=== PATIENT | male | born 1950 | race Caucasian/White ===

== ENCOUNTER 2017-10-23 14:17 | Inpatient (IN) | payer MEDICARE, OTHER ==
[~2017-10-23] VITALS: Ht 175.3 cm; Wt 84.0 kg
[~2017-10-23 14:17] MED LIST: ASPI-1265 PO; ATOR40TA71 PO; DIVA-81 PO; DIVA250T4 PO; FLO0.4C PO; LISI-600 PO
[2017-10-23 15:09] LABS: BASOPHILS % (AUTO) 0 % (0-1); EOSINOPHILS % (AUTO) 0 % (0-6); HEMATOCRIT 38.2 % (42.0-52.0); HEMOGLOBIN 13.4 g/dl (14.0-17.9); LYMPHOCYTES # (AUTO) 0.4 X10'3 (1.1-4.8); LYMPHOCYTES % (AUTO) 2.7 % (21-51); MEAN CORPUSCULAR HEMOGLOBIN 34.8 PG (27.0-31.0); MEAN CORPUSCULAR HGB CONC 35.2 % (33.0-36.5); MEAN CORPUSCULAR VOLUME 98.9 FL (78-98); MEAN PLATELET VOLUME 8.1 FL (7.4-10.4); MONOCYTES # (AUTO) 0.8 X10'3 (0-0.9); MONOCYTES % (AUTO) 5.3 % (2-12); NEUTROPHILS # (AUTO) 14.4 X10'3 (1.8-7.7); PLATELET COUNT 60 X10'3 (140-440); RED BLOOD COUNT 3.86 X10'6 (4.70-6.10); WHITE BLOOD COUNT 15.6 X10'3 (4.5-11.0)
[2017-10-23 15:21] LABS: INR 1.1 INR; PARTIAL THROMBOPLASTIN TIME 32 SECONDS (22-32); PROTHROMBIN TIME 11.2 SECONDS (9.0-12.0)
[2017-10-23 15:31] LABS: ALANINE AMINOTRANSFERASE 10 U/L (12-78); ALBUMIN 2.6 G/DL (3.4-5.0); ALBUMIN/GLOBULIN RATIO 0.5 (1.1-1.5); ALKALINE PHOSPHATASE 57 IU/L (46-116); ANION GAP 8 (8-16); ASPARTATE AMINO TRANSFERASE 15 U/L (10-37); BILIRUBIN,TOTAL 0.7 MG/DL (0.1-1.0); BLOOD UREA NITROGEN 29 MG/DL (7-18); BUN/CREATININE RATIO 26.4 (5.4-32.0); CALCIUM 8.9 MG/DL (8.5-10.1); CHLORIDE 98 MMOL/L (99-107); GLUCOSE 100 MG/DL (70-104); POTASSIUM 4.4 MMOL/L (3.5-5.1); SODIUM 134 MMOL/L (135-145); TOTAL CARBON DIOXIDE 28.3 MMOL/L (24-32); TOTAL PROTEIN 7.4 G/DL (6.4-8.2); VALPROATE 90 UG/ML (50-100); eGFR 66 ML/MIN
[2017-10-23 16:30] LABS: CLARITY,URINE CLEAR (Clear); COLOR,URINE YELLOW (Yellow); GLUCOSE, URINE NEGATIVE (Neg); KETONES,URINE 40 mg/dl (Neg); LEUKOCYTE ESTERASE ,URINE NEGATIVE (Neg); NITRITES, URINE NEGATIVE (Neg); OCCULT BLOOD,URINE SMALL (Neg); PH,URINE 7.5 (4.8-8.0); PROTEIN,URINE TRACE mg/dl (Neg)
[2017-10-23 16:32] LABS: UA COLLECTION TYPE VOIDED
[2017-10-23 16:38] LABS: BACTERIA,URINE NONE SEEN /HPF (Neg); RBC,URINE 0-2 /HPF (0-2); SQUAMOUS EPITHELIAL CELL,UR FEW /LPF (FEW); WBC,URINE NONE SEEN /HPF (0-4)
[2017-10-23] MEDS ORDERED: acetaminophen 325mg tablet PO ONE (17:20)
[2017-10-23] MEDS ORDERED: normal saline 1000ML IV soln IV ONE (17:50)
[2017-10-23] MEDS ORDERED: levoFLOXACIN-Levaquin 750MG/D5 150 ML IV ONE (17:50)
[2017-10-23] MEDS ORDERED: CITA20TA11 PO (19:18)
[2017-10-23] MEDS ORDERED: DIVA500T7 PO (19:21)
[2017-10-23] MEDS ORDERED: LISI1TAB11 PO (19:21)
[2017-10-23] MEDS ORDERED: DOXA1TAB2 PO (19:42)
[2017-10-23 20:35] VITALS: BP 134/82
[2017-10-23 22:00] VITALS: BP 121/68
[2017-10-24 05:00] VITALS: BP 116/84
[2017-10-24 10:00] VITALS: BP_SYST 114; BP_SYST 123; BP_DIAS 63; BP_DIAS 71
[2017-10-24] MEDS ORDERED: divalproex sodium 250mg tablet PO ONE (10:40)
[2017-10-24 15:40] LABS: BASOPHILS % (AUTO) 0.1 % (0-1); EOSINOPHILS % (AUTO) 0 % (0-6); HEMATOCRIT 35.6 % (42.0-52.0); HEMOGLOBIN 12.6 g/dl (14.0-17.9); LYMPHOCYTES # (AUTO) 0.7 X10'3 (1.1-4.8); LYMPHOCYTES % (AUTO) 8.6 % (21-51); MEAN CORPUSCULAR HEMOGLOBIN 35.3 PG (27.0-31.0); MEAN CORPUSCULAR HGB CONC 35.4 % (33.0-36.5); MEAN CORPUSCULAR VOLUME 99.7 FL (78-98); MEAN PLATELET VOLUME 8.4 FL (7.4-10.4); MONOCYTES # (AUTO) 1.1 X10'3 (0-0.9); MONOCYTES % (AUTO) 13.8 % (2-12); NEUTROPHILS # (AUTO) 6.2 X10'3 (1.8-7.7); NEUTROPHILS % (AUTO) 77.5 % (42-75); PLATELET COUNT 69 X10'3 (140-440); RED BLOOD COUNT 3.57 X10'6 (4.70-6.10)
[2017-10-24 15:54] LABS: ALANINE AMINOTRANSFERASE 12 U/L (12-78); ALBUMIN 2.3 G/DL (3.4-5.0); ALBUMIN/GLOBULIN RATIO 0.5 (1.1-1.5); ALKALINE PHOSPHATASE 52 IU/L (46-116); ANION GAP 5 (8-16); ASPARTATE AMINO TRANSFERASE 18 U/L (10-37); BILIRUBIN,TOTAL 0.7 MG/DL (0.1-1.0); BLOOD UREA NITROGEN 23 MG/DL (7-18); CALCIUM 8.5 MG/DL (8.5-10.1); CHLORIDE 98 MMOL/L (99-107); GLUCOSE 117 MG/DL (70-104); SODIUM 132 MMOL/L (135-145); TOTAL CARBON DIOXIDE 29.3 MMOL/L (24-32); TOTAL PROTEIN 6.6 G/DL (6.4-8.2); eGFR 74 ML/MIN
[2017-10-24 18:00] VITALS: BP 136/80
[2017-10-24] MEDS ORDERED: divalproex sod 250mg ER (24-hour) tablet PO SCH (20:00)
[2017-10-24] MEDS: levoFLOXACIN-Levaquin 750MG/D5 150 ML IV SCH (20:37)
[2017-10-24 22:00] VITALS: BP 148/85
[2017-10-25 05:00] VITALS: BP 143/87
[2017-10-25] MEDS: atorvastatin 20mg tablet PO SCH (07:59)
[2017-10-25] MEDS: aspirin 81mg tab.chew PO SCH (07:59)
[2017-10-25] MEDS: lisinopril 20mg tablet PO SCH (07:59)
[2017-10-25] MEDS: HYDROchlorothiazide 12.5mg capsule PO SCH (07:59)
[2017-10-25] MEDS ORDERED: divalproex sodium 500mg tablet.DR PO SCH (08:00)
[2017-10-25] MEDS: doxazosin mesylate 2mg tablet PO SCH ×2 (08:00→10:18)
[2017-10-25] MEDS ORDERED: levoFLOXACIN-Levaquin 750MG/D5 150 ML IV SCH (08:00)
[2017-10-25] MEDS: divalproex sodium 500mg tablet.DR PO SCH (10:17)
[2017-10-25 18:00] VITALS: BP 116/74
[2017-10-25] MEDS: levoFLOXACIN-Levaquin 750MG/D5 150 ML IV SCH (20:50)
[2017-10-25 22:00] VITALS: BP 117/65
[2017-10-26 06:00] VITALS: BP 129/76
[2017-10-26] MEDS: HYDROchlorothiazide 12.5mg capsule PO SCH (09:16)
[2017-10-26] MEDS: lisinopril 20mg tablet PO SCH (09:16)
[2017-10-26] MEDS: atorvastatin 20mg tablet PO SCH (09:16)
[2017-10-26] MEDS: doxazosin mesylate 2mg tablet PO SCH (09:16)
[2017-10-26] MEDS: aspirin 81mg tab.chew PO SCH (09:16)
[2017-10-26] MEDS: divalproex sodium 500mg tablet.DR PO SCH (09:18)
[2017-10-26] MEDS ORDERED: LEVO500T2 PO (10:09)
[2017-10-26 10:30] VITALS: BP 108/62
[2017-10-26] MEDS ORDERED: lactobacillus rhamnosus 10,000 MMU CELLS/CAPSULE PO SCH (17:30)
== END 2017-10-26 12:15 | DRG 100 ==
LOC: ER 14:18 → ED HOLD 19:15 → ORTHO 4S 20:39
PROVIDERS: ADMIT Family Medicine; ATTEND Legal Medicine
DX: G40.409 Other generalized epilepsy and epileptic syndromes, not intractable, without status epilepticus (principal); J18.9 Pneumonia, unspecified organism; R32 Unspecified urinary incontinence; Z79.82 Long term (current) use of aspirin; Z79.899 Other long term (current) drug therapy
CPT/HCPCS: 36415; 70450; 70551; 71045; 80053; 80164; 81001; 83605; 84145; 84484; 85025; 85610; 85730; 87040; 87070; 93005; 96374; 96375; 97110; 97116; 97162; 97530; 99285; A4353; J1956; J7030

== ENCOUNTER 2017-12-04 08:43 | Inpatient (IN) | payer MEDICARE, OTHER ==
[~2017-12-04] VITALS: Ht 180.3 cm; Wt 80.0 kg
[~2017-12-04 08:43] MED LIST changes: -DIVA-81 PO; -DIVA250T4 PO; +DIVA500T7 PO; +DOXA1TAB2 PO; -FLO0.4C PO; -LISI-600 PO; +LISI1TAB11 PO
[2017-12-04] MEDS ORDERED: LORazepam 2 mg/ml vial IV ONE (08:45)
[2017-12-04] MEDS ORDERED: LORazepam 2 mg/ml vial ONE (08:46)
[2017-12-04] MEDS ORDERED: ondansetron/PF 4mg/2ml inj IV ONE (09:00)
[2017-12-04] MEDS ORDERED: ondansetron/PF 4mg/2ml inj ONE (09:00)
[2017-12-04 09:11] LABS: BASOPHILS % (AUTO) 0.2 % (0-1); EOSINOPHILS # (AUTO) 0.1 X10'3 (0-0.9); EOSINOPHILS % (AUTO) 1.8 % (0-6); HEMATOCRIT 42.1 % (42.0-52.0); HEMOGLOBIN 14.9 g/dl (14.0-17.9); LYMPHOCYTES # (AUTO) 0.7 X10'3 (1.1-4.8); LYMPHOCYTES % (AUTO) 9.7 % (21-51); MEAN CORPUSCULAR HEMOGLOBIN 35.4 PG (27.0-31.0); MEAN CORPUSCULAR HGB CONC 35.3 % (33.0-36.5); MEAN CORPUSCULAR VOLUME 100.1 FL (78-98); MEAN PLATELET VOLUME 8.3 FL (7.4-10.4); MONOCYTES # (AUTO) 0.4 X10'3 (0-0.9); NEUTROPHILS # (AUTO) 6.3 X10'3 (1.8-7.7); NEUTROPHILS % (AUTO) 83.3 % (42-75); PLATELET COUNT 111 X10'3 (140-440); RED CELL DISTRIBUTION WIDTH 14.7 % (11.5-14.5); WHITE BLOOD COUNT 7.6 X10'3 (4.5-11.0)
[2017-12-04 09:19] LABS: INR 1.1 INR; PARTIAL THROMBOPLASTIN TIME 25 SECONDS (22-32); PROTHROMBIN TIME 11.1 SECONDS (9.0-12.0)
[2017-12-04] MEDS ORDERED: acetaminophen 650mg rectal suppository RC STA (09:28)
[2017-12-04] MEDS ORDERED: normal saline 1000ML IV soln IVB ONE (09:30)
[2017-12-04 09:33] LABS: ALANINE AMINOTRANSFERASE 13 U/L (12-78); ALBUMIN 3.1 G/DL (3.4-5.0); ALBUMIN/GLOBULIN RATIO 0.8 (1.1-1.5); ALKALINE PHOSPHATASE 42 IU/L (46-116); ANION GAP 11 (8-16); ASPARTATE AMINO TRANSFERASE 16 U/L (10-37); BILIRUBIN,TOTAL 0.6 MG/DL (0.1-1.0); BLOOD UREA NITROGEN 25 MG/DL (7-18); BUN/CREATININE RATIO 27.2 (5.4-32.0); CALCIUM 8.4 MG/DL (8.5-10.1); CHLORIDE 104 MMOL/L (99-107); CREATININE 0.92 MG/DL (0.60-1.10); ETHANOL < 0.010 GM/DL (0.0-0.010); GLUCOSE 122 MG/DL (70-104); MAGNESIUM 2.1 MG/DL (1.5-2.4); PHOSPHORUS 3.3 MG/DL (2.3-4.5); POTASSIUM 4.6 MMOL/L (3.5-5.1); SODIUM 139 MMOL/L (135-145); TOTAL CARBON DIOXIDE 24.1 MMOL/L (24-32); TOTAL PROTEIN 7.2 G/DL (6.4-8.2); eGFR 82 ML/MIN
[2017-12-04 09:37] LABS: VALPROATE 49 UG/ML (50-100)
[2017-12-04 09:56] LABS: ABG BASE EXCESS 2.6 mmol/L (-2.0-3.0); ABG HCO3 25.9 mmol/L (22.0-26.0); ABG OXYGEN SATURATION 93.9 % (95-98); ABG PCO2 (T) 37.9 mmHg (35.0-48.0); ABG PH (T) 7.457 (7.350-7.450); ABG PO2 (T) 75.4 mmHg (83-108); ALLEN'S TEST Positive; FCOHb 0.6 % (0.5-1.5); FMetHb 0.2 % (0.3-1.12); FO2Hb 93.1 % (94-100); PATIENT TEMPERATURE 38.1; TOTAL HEMOGLOBIN 15.4 G/dl (14.0-18.0)
[2017-12-04] MEDS ORDERED: azithromycin/NS 500mg/250ml 250 ML IV ONE (10:10)
[2017-12-04] MEDS ORDERED: CefTRIAXone 2gm/NS 100ml IVPB 100 ML IV ONE (10:10)
[2017-12-04 10:32] LABS: CLARITY,URINE SLIGHTLY CLOUDY (Clear); COLOR,URINE STRAW (Yellow); GLUCOSE, URINE NEGATIVE (Neg); KETONES,URINE NEGATIVE (Neg); LEUKOCYTE ESTERASE ,URINE NEGATIVE (Neg); NITRITES, URINE NEGATIVE (Neg); OCCULT BLOOD,URINE LARGE (Neg); PROTEIN,URINE NEGATIVE (Neg); UROBILINOGEN,URINE 0.2 E.U/dL (0.2-1.0)
[2017-12-04 10:38] LABS: UA COLLECTION TYPE OTHER
[2017-12-04 10:41] LABS: RBC,URINE 50-100 /HPF (0-2); SQUAMOUS EPITHELIAL CELL,UR FEW /LPF (FEW); TRANSITIONAL EPI CELLS,URINE FEW /HPF
[2017-12-04 10:42] LABS: BACTERIA,URINE 1+ /HPF (Neg); URINE AMPHETAMINE SCREEN NEGATIVE (Neg); URINE BARBITUATE SCREEN NEGATIVE (Neg); URINE BENZODIAZEPINES SCREEN POSITIVE (Neg); URINE CANNABINOID SCREEN NEGATIVE (Neg); URINE COCAINE SCREEN NEGATIVE (Neg); URINE METHADONE SCREEN NEGATIVE (Neg); URINE OPIATE SCREEN NEGATIVE (Neg); URINE PHENCYCLIDINE SCREEN NEGATIVE (Neg); WBC,URINE 0-4 /HPF (0-4)
[2017-12-04] MEDS: K and/or MAG REPLACEMENT MC SCH (12:55)
[2017-12-04] MEDS ORDERED: magnesium 4gm in 100ml NS 100 ML IV PRN (12:55)
[2017-12-04] MEDS ORDERED: potassium Cl 20 mEq SR tablet PO PRN ×2 (12:55)
[2017-12-04] MEDS ORDERED: ondansetron/PF 4mg/2ml inj IV PRN (12:55)
[2017-12-04] MEDS ORDERED: potassium Cl 40MEQ/NS 500ml 500 ML IV PRN ×2 (12:55)
[2017-12-04] MEDS ORDERED: acetaminophen 325mg tablet PO PRN (12:55)
[2017-12-04] MEDS ORDERED: magnesium 2GM in 50ml NS 50 ML IV PRN (12:55)
[2017-12-04] MEDS ORDERED: magnesium hydroxide 30ml (MOM) UD suspension PO PRN (12:55)
[2017-12-04] MEDS ORDERED: mag hydrox/Alum hydrox/simeth 30ml oral suspension PO PRN (12:55)
[2017-12-04] MEDS ORDERED: magnesium Cl slow-release 64mg tablet PO PRN (12:55)
[2017-12-04] MEDS: normal saline 1000ml 1,000 ML IV SCH ×2 (13:35→23:40)
[2017-12-04] MEDS: levetiracetam inj 1,000 MG in normal saline 100ml IV soln 90 ML IV SCH ×2 (13:36→20:33)
[2017-12-04 22:45] VITALS: BP 118/75
[2017-12-05] VITALS: BP 118/75
[2017-12-05] MEDS ORDERED: morphine 2 MG/ML inj. syringe IV ONE (03:25)
[2017-12-05] MEDS ORDERED: morphine 4 MG/ML inj SYRINge IV ONE (03:50)
[2017-12-05 05:44] LABS: ALBUMIN 2.7 G/DL (3.4-5.0); ANION GAP 7 (8-16); BLOOD UREA NITROGEN 16 MG/DL (7-18); BUN/CREATININE RATIO 21.3 (5.4-32.0); CHLORIDE 108 MMOL/L (99-107); CREATININE 0.75 MG/DL (0.60-1.10); GLUCOSE 85 MG/DL (70-104); MAGNESIUM 1.9 MG/DL (1.5-2.4); POTASSIUM 3.4 MMOL/L (3.5-5.1); SODIUM 142 MMOL/L (135-145); TOTAL CARBON DIOXIDE 27.2 MMOL/L (24-32); eGFR > 90 ML/MIN
[2017-12-05 05:48] LABS: BASOPHILS % (AUTO) 0.2 % (0-1); EOSINOPHILS # (AUTO) 0.1 X10'3 (0-0.9); EOSINOPHILS % (AUTO) 0.8 % (0-6); HEMATOCRIT 35.8 % (42.0-52.0); HEMOGLOBIN 12.7 g/dl (14.0-17.9); LYMPHOCYTES # (AUTO) 1.4 X10'3 (1.1-4.8); LYMPHOCYTES % (AUTO) 19.3 % (21-51); MEAN CORPUSCULAR HEMOGLOBIN 35.7 PG (27.0-31.0); MEAN CORPUSCULAR HGB CONC 35.6 % (33.0-36.5); MEAN CORPUSCULAR VOLUME 100.5 FL (78-98); MEAN PLATELET VOLUME 8.8 FL (7.4-10.4); MONOCYTES # (AUTO) 0.8 X10'3 (0-0.9); MONOCYTES % (AUTO) 10.6 % (2-12); NEUTROPHILS % (AUTO) 69.1 % (42-75); PLATELET COUNT 94 X10'3 (140-440); RED BLOOD COUNT 3.56 X10'6 (4.70-6.10); RED CELL DISTRIBUTION WIDTH 14.6 % (11.5-14.5); WHITE BLOOD COUNT 7.3 X10'3 (4.5-11.0)
[2017-12-05 06:22] LABS: INR 1.1 INR; PROTHROMBIN TIME 11.5 SECONDS (9.0-12.0)
[2017-12-05 07:10] VITALS: BP 132/69
[2017-12-05] MEDS: atorvastatin 20mg tablet PO SCH (08:00)
[2017-12-05] MEDS: lisinopril 20mg tablet PO SCH (08:00)
[2017-12-05] MEDS ORDERED: non-formulary drug (Atorvastatin Calcium 1 TABLET) PO SCH (08:00)
[2017-12-05] MEDS: K and/or MAG REPLACEMENT MC SCH (08:00)
[2017-12-05] MEDS: aspirin 81mg tab.chew PO SCH (08:30)
[2017-12-05] MEDS: normal saline 1000ml 1,000 ML IV SCH ×2 (10:26→20:20)
[2017-12-05] MEDS: levetiracetam inj 1,000 MG in normal saline 100ml IV soln 90 ML IV SCH ×2 (10:27→20:20)
[2017-12-05] MEDS: azithromycin/NS 500mg/250ml 250 ML IV SCH (10:59)
[2017-12-05] MEDS: HYDROchlorothiazide 12.5mg capsule PO SCH (11:50)
[2017-12-05 12:00] VITALS: BP 128/71
[2017-12-05] MEDS: cefTRIAXone 1g/NS 100ml IVPB 100 ML IV SCH (12:31)
[2017-12-05 13:30] VITALS: BP 126/72
[2017-12-05 18:00] VITALS: BP 143/78
[2017-12-05 22:00] VITALS: BP 139/81
[2017-12-06 02:00] VITALS: BP 150/81
[2017-12-06] MEDS: normal saline 1000ml 1,000 ML IV SCH (04:51)
[2017-12-06 06:00] VITALS: BP 147/72
[2017-12-06] MEDS: lisinopril 20mg tablet PO SCH (07:46)
[2017-12-06] MEDS: HYDROchlorothiazide 12.5mg capsule PO SCH (07:46)
[2017-12-06] MEDS: atorvastatin 20mg tablet PO SCH (07:46)
[2017-12-06] MEDS: aspirin 81mg tab.chew PO SCH (07:47)
[2017-12-06] MEDS: azithromycin/NS 500mg/250ml 250 ML IV SCH (07:48)
[2017-12-06] MEDS: K and/or MAG REPLACEMENT MC SCH (08:00)
[2017-12-06 11:00] VITALS: BP 146/74
[2017-12-06] MEDS: levetiracetam inj 1,000 MG in normal saline 100ml IV soln 90 ML IV SCH (11:31)
[2017-12-06] MEDS: cefTRIAXone 1g/NS 100ml IVPB 100 ML IV SCH (11:50)
[2017-12-06] MEDS ORDERED: KEP500T PO (16:05)
[2017-12-06] MEDS ORDERED: POTA20TA19 PO (16:07)
[2017-12-06] MEDS ORDERED: levetiracetam 250mg tablet PO SCH (20:00)
[2017-12-06] MEDS ORDERED: lactobacillus rhamnosus 10,000 MMU CELLS/CAPSULE PO SCH (20:00)
[2017-12-07] MEDS ORDERED: azithromycin 250mg tablet PO SCH (08:00)
== END 2017-12-06 17:35 | disposition home or self-care (01) | DRG 100 ==
LOC: ER 08:43 → ED HOLD 12:51 → EDBEDREQ 13:52 → SUR 3N 22:45 → ORTHO 4S 12-05 14:07
PROVIDERS: ADMIT Nurse Practitioner Family; ATTEND Internal Medicine
PROC: 4A10X4Z Monitoring of Central Nervous Electrical Activity, External Approach (ICD-10-PCS; principal; 2017-12-06)
DX: G40.909 Epilepsy, unspecified, not intractable, without status epilepticus (principal); J18.1 Lobar pneumonia, unspecified organism; E78.5 Hyperlipidemia, unspecified; E87.6 Hypokalemia; R25.1 Tremor, unspecified; I10 Essential (primary) hypertension; Z88.0 Allergy status to penicillin; Z79.899 Other long term (current) drug therapy; Z79.82 Long term (current) use of aspirin
CPT/HCPCS: 36415; 36600; 70450; 70544; 70551; 71045; 74230; 80048; 80053; 80164; 80305; 80320; 81001; 82803; 82948; 83605; 83735; 84100; 84145; 85018; 85025; 85610; 85730; 87040; 87070; 87502; 87503; 93005; 93308; 93880; 95816; 96361; 96365; 96368; 96375; 99285; A4310; C1758; J0456; J0696; J1953; J2060; J2405; J3480; J7030